=== PATIENT | female | born 1990 | race Caucasian/White ===

== ENCOUNTER 2017-04-11 16:59 | Emergency (ER) | payer OTHER ==
[~2017-04-11] VITALS: Ht 175.3 cm; Wt 133.8 kg
[2017-04-11 17:21] VITALS: BP 109/75
[2017-04-11] MEDS ORDERED: IBUPROFEN 800 MG TAB PO ONE (17:30)
== END 2017-04-11 19:57 | disposition home or self-care (01) ==
LOC: EDBD 16:59 → ER 16:59
DX: J40 Bronchitis, not specified as acute or chronic (principal); J45.909 Unspecified asthma, uncomplicated; J02.9 Acute pharyngitis, unspecified